=== PATIENT | female | born 1970 | race Caucasian/White ===

== ENCOUNTER 2017-04-03 02:28 | Emergency (ER) | payer BC, OTHER ==
[2017-04-03] MEDS ORDERED: IBUPROFEN 600 MG TAB PO STA (02:42)
--- NOTE | 2017-04-03 02:44 | ED ---
General Adult HPI - General Chief complaint: Extremity Injury, Lower Stated complaint: fall,leg injury Time Seen by Provider: 04/03/17 02:40 Source: patient, RN notes reviewed Mode of arrival: ambulatory Limitations: no limitations - History of Present Illness Initial comments: 47-year-old female presents to the emergency department with a chief complaint of right ankle pain. Patient states she was walking the dogs and she slipped In wet grass that she slipped and twisted her right ankle. Patient states she heard a pop and since she's had pain. Patient states she is able to walk on it but it's very tender and it hurts to bear complete weight. Patient denies any fracture to the ankle past but states she did have many sprained ankles as a child. Patient denies any other injuries from the incident. Patient denies any head trauma or neck trauma. Patient states her pain is 7 out of 10. Patient states more along the outside of the ankle. Patient denies any knee pain.Patient denies any recent fever, chills, shortness of breath, chest pain, back pain, abdominal pain, nausea vomiting, numbness or tingling, dysuria or hematuria, constipation or diarrhea, headaches or visual changes, or any other current symptoms. - Related Data Previous Rx's Medication Instructions Recorded Hydrocodone/Acetaminophen [[place] 1 each PO Q6HR PRN #20 tab 04/03/17 5-325] Allergies Allergy/AdvReac Type Severity Reaction Status Date / Time No Known Allergies Allergy Verified 04/03/17 02:35 Review of Systems ROS Statement: Those systems with pertinent positive or pertinent negative responses have been documented in the HPI. ROS Other: All systems not noted in ROS Statement are negative. Past Medical History Past Medical History: No Reported History History of Any Multi-Drug Resistant Organisms: None Reported Past Surgical History: Orthopedic Surgery, Tonsillectomy Past Psychological History: No Psychological Hx Reported Smoking Status: Never smoker Past Alcohol Use History: Occasional Past Drug Use History: None Reported General Exam - General Exam Comments Initial Comments: General: The patient is awake and alert, in no distress, and does not appear acutely ill. Neck: The neck is supple, there is no tenderness. Cardiovascular: There is a regular rate and rhythm. No murmur, rub or gallop is appreciated. Respiratory: Lungs are clear to auscultation, respirations are non-labored, breath sounds are equal. No wheezes, stridor, rales, or rhonchi. Musculoskeletal: Sensation intact with 2+ pulses throughout the right lower extremity. Full range of motion of right knee right ankle right foot. No tenderness to palpation of the right knee or foot. There is some tenderness and some swelling noted along the lateral aspects of the right ankle and to the lateral malleolus. No medial malleolus tap tenderness. Neurological: CN II-XII intact, There are no obvious motor or sensory deficits. Coordination appears grossly intact. Speech is normal. Skin: Skin is warm and dry and no rashes or lesions are noted. Psychiatric: Normal mood and affect. Limitations: no limitations Course Vital Signs 04/03/17 02:31 Temperature 98.8 F Pulse Rate 115 H Respiratory 20 Rate Blood Pressure 193/99 O2 Sat by Pulse 100 Oximetry Procedures - Orthopedic Splinting/Casting Injury #1 Side: right Lower Extremity Injury Location: ankle Lower Extremity Immobilizer: Chad wrap Medical Decision Making - Medical Decision Making 27-year-old female presents for what appears to radiate. X-ray distant does show a fracture. This time we discussed ice we discussed care. Discussed follow-up and all patient's questions. She stated that she understood and she is in agreement with this plan. She will be discharged home - Radiology Data Radiology results: image reviewed Interpreted by me: Interpreted by me: Ankle xray: 3 view, distal right fibular fracture over the lateral malleolus no dislocation, no bony lesions, no foreign bodies, no soft tissue damage. Waiting official radiology read. Disposition Clinical Impression: Closed right ankle fracture Disposition: HOME SELF-CARE Condition: Stable Instructions: Ankle Fracture (ED) Additional Instructions: Please use medication as discussed. Please follow up with family doctor if symptoms have not improved over the next two days. Please return to the emergency room if your symptoms increase or worsen or for any other concerns. Rest the area. Ice the area 20 min on 20 min off 4x a day. Compress the area with either the CHAD bandage or wearing the splint. Elevate the area above the heart whenever possible. Prescriptions: Hydrocodone/Acetaminophen [[place] 5-325] 1 each PO Q6HR PRN #20 tab PRN Reason: Pain Referrals: Allegra Zhang DO [Primary Care Provider] - 1-2 days Sergey Hinton MD [STAFF PHYSICIAN] - 1-2 days Time of Disposition: 03:34
[2017-04-03] MEDS ORDERED: HYDROcodone/APAP 5-325MG 1 EACH TAB PO STA (03:34)
[2017-04-03 04:07] VITALS: BP 170/81; PULSE 93; RESP 18; TEMP 98
--- NOTE | 2017-04-03 04:07 | XR ---
EXAM: XR Right Ankle Complete, 3 or More Views CLINICAL HISTORY: Pain TECHNIQUE: Frontal, lateral and oblique views of the right ankle. COMPARISON: No relevant prior studies available. FINDINGS: Bones/joints: Acute nondisplaced oblique fracture through the distal metaphysis of the fibula. Tiny well-corticated ossific fragment seen inferior to the medial malleolus which may represent remote injury. Small Achilles enthesophyte. Soft tissues: Mild soft tissue swelling about the lateral ankle. IMPRESSION: Acute nondisplaced oblique fracture through the distal metaphysis of the fibula.
== END 2017-04-03 04:08 | disposition home or self-care (01) ==
LOC: EC 02:28
DX: S82.61XA Displaced fracture of lateral malleolus of right fibula, initial encounter for closed fracture (principal); Z98.890 Other specified postprocedural states; X50.1XXA Overexertion from prolonged static or awkward postures, initial encounter
CPT/HCPCS: 29515; 99283

== ENCOUNTER → 2017-10-25 | Outpatient (CLI) | payer BC ==
--- NOTE | 2017-10-25 09:25 | [facility] ---
[facility] - HISTORY AND PHYSICAL DATE OF SERVICE: 10/25/2017 HPI: This is a 47-year-old G0 with an LMP of 10/11/2016. The patient is on Sprintec for control. She is without gynecologic complaints. She did not have FSH testing done. PAST MEDICAL HISTORY: Seasonal allergies. MEDICATIONS: 1. Loratadine 10 mg q. day p.r.n. 2. Sprintec 1 daily. ALLERGIES: No known drug allergies. PAST SURGICAL HISTORY: Bone spurs removed from both feet in 1986. PAST [employer]IMARY [employer] HISTORY: She has no history of STDs. SOCIAL HISTORY: She denies tobacco and drug use and has about 5 alcohol containing drinks per week. She has been since 1998 and works at [employer] in [place]. FAMILY HISTORY: Unchanged from the 2015. REVIEW OF SYSTEMS: She has lost about 8 pounds over the last year. She denies respiratory, cardiac or GI problems. PHYSICAL EXAM: Blood pressure 135/80, height 5 feet 4 inches, weight 175 pounds, BMI 30, temperature 98.7, pulse 106. This is a well-developed, well-nourished, white female who is alert and oriented x3, in no acute distress. HEENT is within normal limits. NECK: Supple without mass or thyromegaly. CHEST AND LUNGS: Clear to auscultation. HEART: Regular rate and rhythm. Breasts are without mass or discharge. Axillary exam is negative for adenopathy. BACK: Negative for CVA tenderness. ABDOMEN: Soft, nontender, without palpable masses. PELVIC EXAM: Normal external genitalia. Cervix reveals a slight ectropian consistent with oral contraceptive use. There are no lesions. Vagina appears normal. There is no evidence of prolapse. The uterus is mid position nongravid size and nontender. There are no palpable adnexal masses or tenderness. Rectal exam is negative for mass or tenderness and is negative for occult blood. EXTREMITIES: Nontender. IMPRESSION: 1. A 47-year-old gynecologically healthy female, doing well on oral contraception. 2. Probable perimenopause based on her age. PLAN: 1. Pap smear was deferred since she had a normal one less than 2 years ago. 2. Self-breast examination was discussed. 3. Screening mammogram will be done today. 4. She will continue on Sprintec at this time. I have recommended blood testing to screen for menopause. I have also given her the option of a trial off of oral contraception to see if she continues to have menstrual periods. The patient does not want to stop the control pills at this time. I have given her a slip for an FSH testing, which she will do at the end of her inactive pill week. 5. She will return in one year. JENNIFER / STEPHANIE: [id number] /
--- NOTE | 2017-10-27 11:57 | MM ---
Reason for exam: screening (asymptomatic). Last mammogram was performed 1 year and 2 months ago. History: Patient is nulliparous. Family history of breast cancer in grandmother at age 80. Taking hormonal contraceptives beginning at age 17. Physical Findings: A clinical breast exam by your physician is recommended on an annual basis and results should be correlated with mammographic findings. MG Screening Mammo w CAD Bilateral CC and MLO view(s) were taken. Prior study comparison: August 10, 2016, bilateral MG screening mammo w CAD. July 15, 2015, bilateral MG screening mammo w CAD. There are scattered fibroglandular densities. Focal asymmetries left breast at 3 o'clock and 6-7 o'clock at a middle depth and posterior depth respectively are more defined. ASSESSMENT: Incomplete: need additional imaging evaluation, BI-RAD 0 RECOMMENDATION: Special view mammogram of the left breast. If lesion persists on supplemental views, image directed ultrasound is recommended. [facility] will attempt to contact patient to return for supplemental views and ultrasound if indicated.
== END | disposition home or self-care (01) ==
LOC: WWCWWP 07:46
PROVIDERS: ATTEND Obstetrics & Gynecology
DX: Z12.31 Encounter for screening mammogram for malignant neoplasm of breast (principal)
CPT/HCPCS: 77067

== ENCOUNTER → 2017-11-03 | Outpatient (CLI) | payer BC ==
--- NOTE | 2017-11-03 09:07 | MM ---
Reason for exam: additional evaluation requested from abnormal screening. Last mammogram was performed less than 1 month ago. History: Patient is nulliparous. Family history of breast cancer in grandmother at age 80. Taking hormonal contraceptives beginning at age 17. Physical Findings: Nurse did not find any significant physical abnormalities on exam. MG Work Up Mamm w CAD LT Spot compression CC, spot compression MLO, and LM view(s) were taken of the left breast. Prior study comparison: October 25, 2017, bilateral MG screening mammo w CAD. August 10, 2016, bilateral MG screening mammo w CAD. The breast tissue is heterogeneously dense. This may lower the sensitivity of mammography. Lateral densities do not persist. 6-7 o'clock posterior central density becomes less defined but incompletely disperses. These results were verbally communicated with the patient and result sheet given to the patient on 11/03/17. ASSESSMENT: Incomplete: need additional imaging evaluation, BI-RAD 0 RECOMMENDATION: Ultrasound of the left breast. (6-7 o'clock)
--- NOTE | 2017-11-03 09:08 | USB ---
Reason for exam: additional evaluation requested from abnormal screening. History: Patient is nulliparous. Family history of breast cancer in grandmother at age 80. Taking hormonal contraceptives beginning at age 17. US Breast Workup Limited LT Left breast ultrasound demonstrates a 5 x 3 x 6mm oval, benign, cystic lesion at 6 o'clock, this likely corresponds to the mammographic finding. A 6 month follow up mammogram recommended. These results were verbally communicated with the patient and result sheet given to the patient on 11/03/17. ASSESSMENT: Probably benign, BI-RAD 3 RECOMMENDATION: Follow-up diagnostic mammogram of the left breast in 6 months.
== END | disposition home or self-care (01) ==
LOC: RADMAMWWP 07:33
PROVIDERS: ATTEND Obstetrics & Gynecology
DX: R92.8 Other abnormal and inconclusive findings on diagnostic imaging of breast (principal)
CPT/HCPCS: 77065

== ENCOUNTER → 2021-09-07 | Outpatient (CLI) | payer BC ==
--- NOTE | 2021-09-08 14:40 | MM ---
Reason for exam: screening (asymptomatic). Last mammogram was performed 3 years and 10 months ago. History: Patient is nulliparous. Family history of breast cancer in grandmother at age 80. Taking hormonal contraceptives beginning at age 17. Physical Findings: A clinical breast exam by your physician is recommended on an annual basis and results should be correlated with mammographic findings. MG 3D Screening Mammo W/Cad Bilateral CC and MLO view(s) were taken. Prior study comparison: September 04, 2020, mammogram, performed at [facility]. August 16, 2019, mammogram, performed at [facility]. There are scattered fibroglandular densities. No significant changes when compared with prior studies. ASSESSMENT: Negative, BI-RAD 1 RECOMMENDATION: Routine screening mammogram of both breasts in 1 year.
== END | disposition home or self-care (01) ==
LOC: RADMAMWWP 06:56
PROVIDERS: ATTEND Family Medicine
DX: Z12.31 Encounter for screening mammogram for malignant neoplasm of breast (principal); Z80.3 Family history of malignant neoplasm of breast
CPT/HCPCS: 77063; 77067